=== PATIENT | female | born 1975 | race African-American/Black ===

== ENCOUNTER 2017-10-05 08:46 | Emergency (ER) | payer SELFPAY ==
[~2017-10-05] VITALS: Ht 160 cm; Wt 104.0 kg
[2017-10-05] MEDS ORDERED: NITR100C PO (08:58)
[2017-10-05] MEDS ORDERED: IBUPROFEN 600MG TABLET PO ONE (11:15)
[2017-10-05 11:19] VITALS: BP 146/97
== END 2017-10-05 12:06 | disposition home or self-care (01) ==
LOC: ER 09:38
DX: J02.9 Acute pharyngitis, unspecified (principal); R19.7 Diarrhea, unspecified; M79.1 Myalgia; Z87.440 Personal history of urinary (tract) infections; Z98.890 Other specified postprocedural states
CPT/HCPCS: 87070; 87430; 99284